=== PATIENT | female | born 1975 | race Caucasian/White ===

== ENCOUNTER 2021-09-04 10:02 | Emergency (ER) | payer OTHER ==
[~2021-09-04] VITALS: Ht 149.9 cm; Wt 71.2 kg
[2021-09-04 10:06] VITALS: BP 142/94
--- NOTE | 2021-09-04 10:10 | NUR ---
46 Y/O FEMALE BIB SELF C/O ABD PAIN 9/10 BURNING IN THE EPIGASTRIC AREA AND PRESSURE AROUND THE ENTIRE ABDOMEN, NAUSEA AND BLOATING X1 WEEK WITH THE PAIN INCREASING YESTERDAY. DENIES ANY VOMITING/DIARRHEA OR FEVERS. DENIES ANY MEDICATION FOR NAUSEA/PAIN. TYMPANY WHEN PERCUSSED. STATES PAIN INCREASED AFTER EATING. NKA PMH: DENIES
--- NOTE | 2021-09-04 10:10 | NUR ---
Note undone in EDM - 09/04/21 at 1050 by [email or web address] 46 Y/O FEMALE BIB SELF C/O ABD PAIN 12/15 BURNING IN THE EPIGASTRIC AREA AND PRESSURE AROUND THE ENTIRE ABDOMEN, NAUSEA AND BLOATING X1 DAY. DENIES ANY VOMITING/DIARRHEA OR FEVERS. DENIES ANY MEDICATION FOR NAUSEA/PAIN. TYMPANY WHEN PERCUSSED. STATES PAIN INCREASED AFTER EATING. NKA PMH: DENIES
--- NOTE | 2021-09-04 10:12 | NUR ---
DR PALMA AT BEDSIDE FOR EVAL
[2021-09-04] MEDS ORDERED: DICYCLOMINE HCL LIQUID 20 MG, ALUMINUM HYD/MAG/SIMETHICONE 30 ML, LIDOCAINE VISCOUS 2% ... PO ONE ×3 (10:20)
--- NOTE | 2021-09-04 10:20 | NUR ---
[facility] AT BEDSIDE
[2021-09-04] MEDS ORDERED: ALUMINUM HYD/MAG/SIMETHICONE 30 ML UDC ONE (10:31)
[2021-09-04] MEDS ORDERED: DICYCLOMINE HCL LIQUID 10 MG/5 ML UDC ONE (10:31)
--- NOTE | 2021-09-04 10:32 | NUR ---
ULTRASOUND AT BEDSIDE
--- NOTE | 2021-09-04 10:34 | NUR ---
JACOBO AT BEDSIDE
[2021-09-04 10:39] LABS: APPEARANCE,URINE SL CLOUDY (CLEAR); BILIRUBIN,URINE NEGATIVE (NEGATIVE); BLOOD, URINE NEGATIVE (NEGATIVE); COLOR,URINE YELLOW (YELLOW); LEUKOCYTE ESTERASE ,URINE TRACE (NEGATIVE); NITRITE, URINE NEGATIVE (NEGATIVE); PH,URINE 6.5 (5.0-9.0); UGLUCOSE NEGATIVE (NEGATIVE)
[2021-09-04 10:51] LABS: BASOPHILS % (AUTO) 0.5 % (0.0-2.0); EOSINOPHILS # (AUTO) 0.2 K/uL (0-0.4); EOSINOPHILS % (AUTO) 2.9 % (0.0-4.0); HEMATOCRIT 41.6 % (36-48); HEMOGLOBIN 14.1 g/dL (12.0-16.0); LYMPHOCYTES # (AUTO) 0.7 K/uL (2.5-16.5); LYMPHOCYTES % (AUTO) 10.3 % (20.5-51.1); MEAN CORPUSCULAR HEMOGLOBIN 29 pg (27-31); MEAN CORPUSCULAR HGB CONC 34 g/dL (33-37); MEAN CORPUSCULAR VOLUME 84.3 fL (80-94); MONOCYTES # (AUTO) 0.4 K/uL (0.8-1.0); MONOCYTES % (AUTO) 5.8 % (1.7-9.3); NEUTROPHILS # (AUTO) 5.7 K/uL (1.8-7.7); NEUTROPHILS % (AUTO) 80.5 % (42.2-75.2); PLATELET COUNT (AUTO) 246 K/uL (140-450); RED BLOOD CELL COUNT(AUTO) 4.94 MIL/uL (4.20-5.40); WHITE BLOOD COUNT (AUTO) 7.2 K/uL (4.8-10.8)
[2021-09-04 10:59] LABS: ALBUMIN 3.9 g/dL (3.4-5.0); CARBON DIOXIDE 25.6 mmol/L (21-32); CREATININE 0.7 mg/dL (0.6-1.3); POTASSIUM 3.6 mmol/L (3.5-5.1); TOTAL BILIRUBIN 0.9 mg/dL (0.0-1.0)
[2021-09-04 11:30] LABS: OTHER CASTS, URINE None Seen /LPF (None Seen); RBC,URINE 0-5 /HPF (0-5); WBC,URINE 0-5 /HPF (0-5)
[2021-09-04] MEDS ORDERED: BEN10 PO (14:19)
[2021-09-04] MEDS ORDERED: MAG-27 PO (14:19)
[2021-09-04 14:30] VITALS: BP 125/81
--- NOTE | 2021-09-04 14:30 | NUR ---
Patient discharged with v/s stable. Written and verbal after care instructions given and explained. Patient alert, oriented and verbalized understanding of instructions. Ambulatory with steady gait. All questions addressed prior to discharge. ID band removed. Patient advised to follow up with PMD. Rx of JOSE NAQVI MAXIMUM given. Patient educated on indication of medication including possible reaction and side effects. Opportunity to ask questions provided and answered.
== END 2021-09-04 14:30 | disposition home or self-care (01) ==
LOC: MED 10:02
DX: R10.10 Upper abdominal pain, unspecified (principal); R11.0 Nausea
CPT/HCPCS: 36415; 74176; 76705; 80053; 81001; 81025; 83690; 85025; 99285; Q0092; 93005